=== PATIENT | male | born 1975 | race Caucasian/White ===

== ENCOUNTER 2024-03-06 05:18 | Day surgery (SDC) | payer BC ==
[2024-03-04 15:53] VITALS: BMI 27.3
[2024-03-06] MEDS ORDERED: ACETAMINOPHEN 500 MG TABLET (FP) PO PRN (08:52)
[2024-03-06 13:28] VITALS: RESP 20
[2024-03-06 15:26] VITALS: BP 136/82; PULSE 67; TEMP 97.8
== END 2024-03-06 15:00 | disposition home or self-care (01) ==
LOC: JASU-SURG 05:18
PROVIDERS: ATTEND Pain Medicine Pain Medicine
PROC: 3E0R3BZ Introduction of Anesthetic Agent into Spinal Canal, Percutaneous Approach (ICD-10-PCS; 2024-03-06)
PROC: 3E0R33Z Introduction of Anti-inflammatory into Spinal Canal, Percutaneous Approach (ICD-10-PCS; principal; 2024-03-06 14:45)
DX: M48.061 Spinal stenosis, lumbar region without neurogenic claudication (principal); M54.16 Radiculopathy, lumbar region
CPT/HCPCS: 76000-TC-FY